=== PATIENT | male | born 1995 | race African-American/Black ===

== ENCOUNTER 2016-07-12 18:06 | Emergency (ER) | payer OTHER ==
[~2016-07-12] VITALS: Ht 177.8 cm; Wt 100.2 kg
[~2016-07-12 18:06] MED LIST: ACETAMINOPHEN325 M1 PO; ARIPIPRAZOLE10 MG PO; ARIPIPRAZOLE5 MG PO; DEPAKOTE250 MG PO; DEPAKOTE500 MG PO; MULTIVITAMIN1 EAC2 PO; POLYETHYLENE G255 GM PO
[2016-07-12 19:51] VITALS: BP 125/75
== END 2016-07-12 19:52 | disposition home or self-care (01) ==
LOC: EME 18:06
DX: F41.9 Anxiety disorder, unspecified (principal)
CPT/HCPCS: 99281; 99283

== ENCOUNTER 2016-08-11 18:22 | Emergency (ER) | payer OTHER ==
[~2016-08-11] VITALS: Ht 177.8 cm; Wt 98.8 kg
[2016-08-11] MEDS ORDERED: DEPAKOTE500 MG PO (18:30)
[2016-08-11] MEDS ORDERED: TOPAMAX50 MG PO (18:30)
[2016-08-11] MEDS ORDERED: INTUNIV1 MG PO (18:30)
[2016-08-11] MEDS ORDERED: LITHIUM CARBON600 MG PO (18:31)
[2016-08-11] MEDS ORDERED: LITHIUM CARBON450 MG PO (18:31)
[2016-08-11] MEDS ORDERED: RISPERDAL3 MG PO (18:31)
[2016-08-11 19:10] LABS: HEMATOCRIT 43.8 % (38.0-50.0); MCH 28.2 PG (29.0-34.0); MCV 88.1 FL (86-99); RBC DIS.WIDTH-CV 12.6 % (11.8-14.6); RBC DIS.WIDTH-SD 40.9 % (39-53); RED BLOOD COUNT 4.97 M/uL (4.00-5.50)
[2016-08-11 19:30] LABS: CHLORIDE 109 mEq/L (99-109); POTASSIUM 4.2 mEq/L (3.7-5.4); SODIUM 138 mEq/L (136-147)
[2016-08-11 19:32] LABS: GLUCOSE 90 mg/dL (70-99)
[2016-08-11 19:33] LABS: ANION GAP 8 MEQ/L (2-14)
[2016-08-11 19:34] LABS: ADD MIUA? NO; BILIRUBIN NEGATIVE; BLOOD NEGATIVE; COLOR YELLOW ((YELLOW)); GLUCOSE (STRIP) NEGATIVE; KETONES NEGATIVE; LEUKOCYTES NEGATIVE; NITRITE NEGATIVE; PROTEIN (STRIP) NEGATIVE; SPECIFIC GRAVITY 1.009 (1.000-1.030); UCUL ADDED? NO; UROBILINOGEN 0.2 MG/DL (0.2-1.0)
[2016-08-11 19:35] LABS: SERUM ETHYL ALCOHOL < 10 mg/dL
[2016-08-11 19:36] LABS: GFR ESTIMATE (CALCULATED) > 59 mL/min/
[2016-08-11 19:37] LABS: SAMPLE HEMOLYSIS CHECK 0; SAMPLE ICTERIC CHECK 0; SAMPLE LIPEMIA CHECK 0; UREA NITROGEN (BUN) 15 mg/dL (9-23)
[2016-08-11 19:42] LABS: AMPHETAMINE NEGATIVE (500 ng/mL); BARBITURATES NEGATIVE (200 ng/mL); BENZODIAZEPINES NEGATIVE (150 ng/mL); COCAINE NEGATIVE (150 ng/mL); INTERNAL CONTROLS VALID? YES; METHADONE NEGATIVE (200 ng/mL); METHAMPHETAMINE NEGATIVE (500 ng/mL); OPIATES (MORPHINE) NEGATIVE (100 ng/mL); OXYCODONE NEGATIVE (100 ng/mL); PHENCYCLIDINE NEGATIVE (25 ng/mL); PROPOXYPHENE NEGATIVE (300 ng/mL); THC CANNABINOIDS NEGATIVE (50 ng/mL); TRICYCLIC ANTIDEPRESSANTS NEGATIVE (300 ng/mL)
[2016-08-11 19:51] LABS: MEAN PLAT.VOLUME 10.9 uM^3 (9.0-12.4); PLATELET COUNT 162 K/uL (156-360)
[2016-08-11 20:27] VITALS: BP 114/71
== END 2016-08-11 20:38 | disposition home or self-care (01) ==
LOC: EME 18:22
PROVIDERS: Emergency Medicine
DX: R47.01 Aphasia (principal); F84.0 Autistic disorder; F31.9 Bipolar disorder, unspecified
CPT/HCPCS: 80048; 80164; 80178; 81003; 85027; 93005; 99281; 99285; G0480

== ENCOUNTER 2016-11-11 09:32 | Emergency (ER) | payer OTHER ==
[~2016-11-11] VITALS: Ht 182.9 cm; Wt 95.5 kg
[~2016-11-11 09:32] MED LIST changes: +INTUNIV1 MG PO; +LITHIUM CARBON450 MG PO; +LITHIUM CARBON600 MG PO; +RISPERDAL3 MG PO; +TOPAMAX50 MG PO
[2016-11-11 10:36] LABS: HEMATOCRIT 41.2 % (38.0-50.0); MCH 28.4 PG (29.0-34.0); MCHC 31.3 G/DL (30.0-36.0); MCV 90.5 FL (86-99); RBC DIS.WIDTH-SD 46.5 % (39-53); RED BLOOD COUNT 4.55 M/uL (4.00-5.50); WHITE BLOOD COUNT 5.5 K/uL (4.1-10.2)
[2016-11-11 10:44] LABS: CHLORIDE 115 mEq/L (99-109); POTASSIUM 4.4 mEq/L (3.7-5.4); SODIUM 143 mEq/L (136-147)
[2016-11-11 10:46] LABS: GLUCOSE 91 mg/dL (70-99)
[2016-11-11 10:47] LABS: ANION GAP 5 MEQ/L (2-14)
[2016-11-11 10:50] LABS: GFR ESTIMATE (CALCULATED) > 59 mL/min/
[2016-11-11 10:51] LABS: UREA NITROGEN (BUN) 8 mg/dL (9-23)
[2016-11-11 12:20] LABS: HEMATOLOGY COMMENT 1 SMEAR COMPATIBLE; MEAN PLAT.VOLUME 10.7 uM^3 (9.0-12.4); PLAT.SUFFICIENCY ADEQUATE; PLATELET COUNT 152 K/uL (156-360)
[2016-11-11 12:27] LABS: ADD MIUA? NO; BILIRUBIN NEGATIVE; BLOOD NEGATIVE; COLOR COLORLESS ((YELLOW)); GLUCOSE (STRIP) NEGATIVE; KETONES NEGATIVE; LEUKOCYTES NEGATIVE; NITRITE NEGATIVE; PROTEIN (STRIP) NEGATIVE; SPECIFIC GRAVITY 1.004 (1.000-1.030); UCUL ADDED? NO; UROBILINOGEN 0.2 MG/DL (0.2-1.0)
[2016-11-11 13:11] VITALS: BP 110/74
== END 2016-11-11 13:12 | disposition home or self-care (01) ==
LOC: EME 09:32
PROVIDERS: Emergency Medicine
DX: G40.909 Epilepsy, unspecified, not intractable, without status epilepticus (principal); F31.9 Bipolar disorder, unspecified; F41.9 Anxiety disorder, unspecified; F84.0 Autistic disorder
CPT/HCPCS: 70450; 80048; 81003; 85027; 99281; 99284

== ENCOUNTER 2016-12-15 15:13 | Emergency (ER) | payer OTHER ==
[~2016-12-15] VITALS: Ht 180.3 cm; Wt 98.0 kg
[2016-12-15 17:06] VITALS: BP 120/61
== END 2016-12-15 17:07 | disposition home or self-care (01) ==
LOC: EME 15:13
DX: F91.9 Conduct disorder, unspecified (principal); F63.81 Intermittent explosive disorder; F31.9 Bipolar disorder, unspecified; F79 Unspecified intellectual disabilities; G40.909 Epilepsy, unspecified, not intractable, without status epilepticus
CPT/HCPCS: 90839; 99281; 99285

== ENCOUNTER 2017-01-02 21:02 | Emergency (ER) | payer OTHER ==
[~2017-01-02] VITALS: Ht 182.9 cm; Wt 75.0 kg
[2017-01-02 23:23] VITALS: BP 129/86
== END 2017-01-02 23:25 | disposition home or self-care (01) ==
LOC: EME → EDBD 21:02 → EME 21:02
DX: F84.0 Autistic disorder (principal); F32.9 Major depressive disorder, single episode, unspecified; F41.9 Anxiety disorder, unspecified; G40.909 Epilepsy, unspecified, not intractable, without status epilepticus
CPT/HCPCS: 99281; 99284

== ENCOUNTER 2017-01-11 17:02 | Emergency (ER) | payer OTHER ==
[~2017-01-11] VITALS: Ht 167.6 cm; Wt 94.8 kg
[2017-01-11 19:10] VITALS: BP 132/90
== END 2017-01-11 19:11 | disposition home or self-care (01) ==
LOC: EME 17:02
DX: F91.9 Conduct disorder, unspecified (principal); F63.81 Intermittent explosive disorder; F79 Unspecified intellectual disabilities; F84.0 Autistic disorder; F31.9 Bipolar disorder, unspecified; R56.9 Unspecified convulsions
CPT/HCPCS: 90839; 99281; 99284

== ENCOUNTER 2017-01-26 19:07 | Emergency (ER) | payer OTHER ==
[~2017-01-26] VITALS: Ht 175.3 cm; Wt 91.6 kg
[2017-01-26 19:55] VITALS: BP 118/77
== END 2017-01-26 19:57 | disposition home or self-care (01) ==
LOC: EME 19:07
DX: F39 Unspecified mood [affective] disorder (principal); F84.0 Autistic disorder; F32.9 Major depressive disorder, single episode, unspecified; F41.9 Anxiety disorder, unspecified
CPT/HCPCS: 99281; 99284

== ENCOUNTER 2017-01-28 18:29 | Emergency (ER) | payer OTHER ==
[~2017-01-28] VITALS: Ht 177.8 cm; Wt 90.8 kg
[2017-01-28 22:13] VITALS: BP 126/83
== END 2017-01-28 22:14 | disposition home or self-care (01) ==
LOC: EME 18:29
DX: F63.81 Intermittent explosive disorder (principal); F84.0 Autistic disorder; F32.9 Major depressive disorder, single episode, unspecified; F41.9 Anxiety disorder, unspecified; R56.9 Unspecified convulsions
CPT/HCPCS: 90839; 99281; 99283

== ENCOUNTER 2017-02-09 19:57 | Inpatient (IN) | payer OTHER ==
[~2017-02-09] VITALS: Ht 177.8 cm; Wt 86.8 kg
[~2017-02-09 19:57] MED LIST changes: -RISPERDAL3 MG PO; +RISPERDAL4 MG PO; +TOPAMAX100 MG PO; -TOPAMAX50 MG PO
[2017-02-09] MEDS ORDERED: LORATADINE10 M2 PO (23:50)
[2017-02-09] MEDS ORDERED: GUANFACINE HCL1 MG PO (23:50)
[2017-02-09] MEDS ORDERED: POLYETHYLENE G255 GM PO (23:52)
[2017-02-09] MEDS ORDERED: TYLENOL REGULA325 MG PO (23:53)
[2017-02-09] MEDS ORDERED: DAILY MULTIPLE1 EACH PO (23:57)
[2017-02-10 01:13] VITALS: BP 115/56
[2017-02-10 07:58] VITALS: BP 97/58
[2017-02-10 16:00] VITALS: BP 87/52
[2017-02-10 18:30] VITALS: BP 109/64
[2017-02-10] MEDS ORDERED: DEPAKOTE250 MG PO (19:18)
[2017-02-10] MEDS ORDERED: TRILAFON8 MG PO (19:19)
[2017-02-11 07:50] VITALS: BP 119/80
[2017-02-11 15:47] VITALS: BP 112/68
[2017-02-12 08:00] VITALS: BP 91/53
== END 2017-02-12 14:55 | disposition home or self-care (01) | DRG 883 ==
LOC: EME 19:57 → 1WEST 22:35 → EDOF 22:35 → ENRESERV 02-10 01:04 → 1WEST 02-10 01:04
DX: F63.81 Intermittent explosive disorder (principal); F84.0 Autistic disorder; F70 Mild intellectual disabilities; Z79.899 Other long term (current) drug therapy
CPT/HCPCS: 80164; 80178; 90837; 99281; 99285; Q0175

== ENCOUNTER 2017-02-26 15:57 | Observation (INO) | payer OTHER ==
[~2017-02-26] VITALS: Ht 182.9 cm; Wt 86.5 kg
[~2017-02-26 15:57] MED LIST changes: +DAILY MULTIPLE1 EACH PO; +GUANFACINE HCL1 MG PO; +LITHIUM CARBON150 MG PO; -LITHIUM CARBON450 MG PO; +LORATADINE10 M2 PO; +TRILAFON8 MG PO; +TYLENOL REGULA325 MG PO
[2017-02-26 17:05] LABS: ADD MIUA? NO; BILIRUBIN NEGATIVE; BLOOD NEGATIVE; COLOR YELLOW ((YELLOW)); GLUCOSE (STRIP) NEGATIVE; KETONES 5; LEUKOCYTES NEGATIVE; NITRITE NEGATIVE; PROTEIN (STRIP) NEGATIVE; SPECIFIC GRAVITY 1.014 (1.000-1.030)
[2017-02-26 17:14] LABS: AMPHETAMINE NEGATIVE (500 ng/mL); BARBITURATES NEGATIVE (200 ng/mL); BENZODIAZEPINES NEGATIVE (150 ng/mL); COCAINE NEGATIVE (150 ng/mL); INTERNAL CONTROLS VALID? YES; METHADONE NEGATIVE (200 ng/mL); METHAMPHETAMINE NEGATIVE (500 ng/mL); OPIATES (MORPHINE) NEGATIVE (100 ng/mL); OXYCODONE NEGATIVE (100 ng/mL); PHENCYCLIDINE NEGATIVE (25 ng/mL); PROPOXYPHENE NEGATIVE (300 ng/mL); THC CANNABINOIDS NEGATIVE (50 ng/mL); TRICYCLIC ANTIDEPRESSANTS PRESUMPTIVE POSITIVE (300 ng/mL)
[2017-02-26 17:30] LABS: HEMATOCRIT 40.1 % (38.0-50.0); MCH 28.9 PG (29.0-34.0); MCHC 31.9 G/DL (30.0-36.0); MCV 90.5 FL (86-99); MEAN PLAT.VOLUME 11.2 uM^3 (9.0-12.4); PLATELET COUNT 126 K/uL (156-360); RBC DIS.WIDTH-CV 13.6 % (11.8-14.6); RBC DIS.WIDTH-SD 45.9 % (39-53); RED BLOOD COUNT 4.43 M/uL (4.00-5.50); WHITE BLOOD COUNT 7.4 K/uL (4.1-10.2)
[2017-02-26 17:40] LABS: CHLORIDE 109 mEq/L (99-109); POTASSIUM 4.4 mEq/L (3.7-5.4); SODIUM 141 mEq/L (136-147)
[2017-02-26 17:41] LABS: GLUCOSE 98 mg/dL (70-99)
[2017-02-26 17:43] LABS: ANION GAP 9 MEQ/L (2-14)
[2017-02-26 17:45] LABS: GFR ESTIMATE (CALCULATED) > 59 mL/min/; SERUM ETHYL ALCOHOL < 10 mg/dL
[2017-02-26 17:46] LABS: UREA NITROGEN (BUN) 9 mg/dL (9-23)
[2017-02-26] MEDS ORDERED: SUPER MULTIVIT1 EACH PO (19:45)
[2017-02-26] MEDS ORDERED: MIRALAX255 GM PO (19:46)
[2017-02-26] MEDS ORDERED: CLARITIN,ALAVAR10 MG PO (19:46)
[2017-02-26] MEDS ORDERED: TYLENOL REGULA325 MG PO (19:46)
[2017-02-26 21:10] VITALS: BP 106/48
[2017-02-27 02:48] VITALS: BP 98/60
[2017-02-27 06:02] LABS: MCH 30.2 PG (29.0-34.0); MCHC 33.4 G/DL (30.0-36.0); MCV 90.4 FL (86-99); RBC DIS.WIDTH-CV 13.8 % (11.8-14.6); RBC DIS.WIDTH-SD 45.4 % (39-53); RED BLOOD COUNT 3.87 M/uL (4.00-5.50); WHITE BLOOD COUNT 6.2 K/uL (4.1-10.2)
[2017-02-27 06:24] LABS: ANION GAP 5 MEQ/L (2-14); CHLORIDE 113 MEQ/L (99-109); GFR ESTIMATE (CALCULATED) > 59 mL/min/; GLUCOSE 82 mg/dL (70-99); POTASSIUM 4.5 MEQ/L (3.7-5.4); SAMPLE HEMOLYSIS CHECK 0; SAMPLE ICTERIC CHECK 0; SAMPLE LIPEMIA CHECK 0; SODIUM 141 MEQ/L (136-147); UREA NITROGEN (BUN) 9 mg/dL (9-23)
[2017-02-27 06:53] LABS: MEAN PLAT.VOLUME 11.4 uM^3 (9.0-12.4); PLAT.SUFFICIENCY DECREASED; PLATELET COUNT 124 K/uL (156-360)
[2017-02-27 09:54] VITALS: BP 104/50
[2017-02-27 12:08] VITALS: BP 95/49
[2017-02-27] MEDS ORDERED: TOPAMAX100 MG PO (13:10)
[2017-02-27] MEDS ORDERED: DEPAKOTE500 MG PO (13:10)
[2017-02-27] MEDS ORDERED: RISPERDAL2 MG PO (13:10)
== END 2017-02-27 15:10 | disposition home or self-care (01) ==
LOC: EME 15:57 → 5WEST 19:49 → EDOF 19:49 → ENRESERV 19:50 → 5WEST 21:01
PROVIDERS: Emergency Medicine; Hospitalist
DX: R53.83 Other fatigue (principal); R41.82 Altered mental status, unspecified; R47.81 Slurred speech; T42.6X5A Adverse effect of other antiepileptic and sedative-hypnotic drugs, initial encounter; F70 Mild intellectual disabilities; F84.0 Autistic disorder; F63.81 Intermittent explosive disorder; F41.9 Anxiety disorder, unspecified; F39 Unspecified mood [affective] disorder; Z79.899 Other long term (current) drug therapy; Z88.8 Allergy status to other drugs, medicaments and biological substances
CPT/HCPCS: 70450; 80048; 80164; 80178; 81003; 85027; 87086; 99281; 99285; G0378; G0480; J7030; Q0175

== ENCOUNTER 2017-02-28 10:45 | Emergency (ER) | payer OTHER ==
[~2017-02-28] VITALS: Ht 175.3 cm; Wt 81.4 kg
[~2017-02-28 10:45] MED LIST changes: +CLARITIN,ALAVAR10 MG PO; +MIRALAX255 GM PO; +RISPERDAL2 MG PO; +SUPER MULTIVIT1 EACH PO
[2017-02-28 11:48] VITALS: BP 111/70
== END 2017-02-28 11:58 | disposition home or self-care (01) ==
LOC: EME 10:45
DX: R51 Headache (principal); F84.0 Autistic disorder; F31.9 Bipolar disorder, unspecified; F41.9 Anxiety disorder, unspecified; F32.9 Major depressive disorder, single episode, unspecified; R56.9 Unspecified convulsions; Z88.8 Allergy status to other drugs, medicaments and biological substances
CPT/HCPCS: 99281; 99283

== ENCOUNTER 2017-03-02 15:33 | Emergency (ER) | payer OTHER ==
[~2017-03-02] VITALS: Ht 175.3 cm; Wt 87.8 kg
[2017-03-02 17:15] LABS: ADD MIUA? NO; BILIRUBIN NEGATIVE; BLOOD NEGATIVE; COLOR YELLOW ((YELLOW)); GLUCOSE (STRIP) NEGATIVE; KETONES NEGATIVE; LEUKOCYTES NEGATIVE; NITRITE NEGATIVE; PROTEIN (STRIP) NEGATIVE; SPECIFIC GRAVITY 1.009 (1.000-1.030)
[2017-03-02] MEDS ORDERED: BENADRYL50 MG PO (17:29)
[2017-03-02 18:00] VITALS: BP 124/71
== END 2017-03-02 18:03 | disposition home or self-care (01) ==
LOC: EME 15:33
PROVIDERS: Physician Assistant
DX: G47.00 Insomnia, unspecified (principal); R32 Unspecified urinary incontinence; F84.0 Autistic disorder
CPT/HCPCS: 81003; 99281; 99283

== ENCOUNTER → 2017-03-03 15:34 | Emergency (ER) | payer OTHER ==
[~2017-03-03] VITALS: Ht 175.3 cm; Wt 89.2 kg
[~2017-03-03 15:34] MED LIST changes: +BENADRYL50 MG PO
[2017-03-03 16:33] VITALS: BP 109/73
== END | disposition left against medical advice (07) ==
LOC: EME 15:34
DX: F84.0 Autistic disorder (principal); Z53.21 Procedure and treatment not carried out due to patient leaving prior to being seen by health care provider

== ENCOUNTER 2017-03-04 15:32 | Emergency (ER) | payer OTHER ==
[~2017-03-04] VITALS: Ht 175.3 cm; Wt 88.1 kg
[2017-03-04 21:04] LABS: EOSINOPHIL (%) 4.3 % (0-5); EOSINOPHIL COUNT 0.3 K/uL (0-0.3); HEMATOCRIT 37.3 % (38.0-50.0); IMMATURE GRANULOCYTE (%) 0.1 % (0.0-0.7); INSTRUMENT ABS NEUTROPHIL CT 2.9 K/uL; MCH 29.2 PG (29.0-34.0); MCHC 32.4 G/DL (30.0-36.0); MCV 89.9 FL (86-99); MEAN PLAT.VOLUME 10.6 uM^3 (9.0-12.4); MONOCYTE COUNT 0.8 K/uL (0-0.8); NEUTROPHIL (%) 41.2 % (45-76); NEUTROPHIL COUNT 2.9 K/uL (1.8-6.4); PLATELET COUNT 153 K/uL (156-360); RBC DIS.WIDTH-CV 13.6 % (11.8-14.6); RBC DIS.WIDTH-SD 45.1 % (39-53); RED BLOOD COUNT 4.15 M/uL (4.00-5.50)
[2017-03-04 21:17] LABS: CHLORIDE 115 mEq/L (99-109); POTASSIUM 4.5 mEq/L (3.7-5.4); SODIUM 139 mEq/L (136-147)
[2017-03-04 21:19] LABS: GLUCOSE 102 mg/dL (70-99)
[2017-03-04 21:22] LABS: SERUM ETHYL ALCOHOL < 10 mg/dL
[2017-03-04 21:23] LABS: GFR ESTIMATE (CALCULATED) > 59 mL/min/
[2017-03-04 21:24] LABS: UREA NITROGEN (BUN) 6 mg/dL (9-23)
[2017-03-04 21:52] LABS: AMPHETAMINE NEGATIVE (500 ng/mL); BARBITURATES NEGATIVE (200 ng/mL); BENZODIAZEPINES NEGATIVE (150 ng/mL); COCAINE NEGATIVE (150 ng/mL); INTERNAL CONTROLS VALID? YES; METHADONE NEGATIVE (200 ng/mL); METHAMPHETAMINE NEGATIVE (500 ng/mL); OPIATES (MORPHINE) NEGATIVE (100 ng/mL); OXYCODONE NEGATIVE (100 ng/mL); PHENCYCLIDINE NEGATIVE (25 ng/mL); PROPOXYPHENE NEGATIVE (300 ng/mL); THC CANNABINOIDS NEGATIVE (50 ng/mL); TRICYCLIC ANTIDEPRESSANTS NEGATIVE (300 ng/mL)
[2017-03-05 05:12] VITALS: BP 105/72
== END 2017-03-05 05:13 ==
LOC: EME 15:32
PROVIDERS: Emergency Medicine
DX: F43.20 Adjustment disorder, unspecified (principal); F63.81 Intermittent explosive disorder; F79 Unspecified intellectual disabilities; F84.0 Autistic disorder; R45.6 Violent behavior
CPT/HCPCS: 80048; 85025; 90837; 99281; 99285; G0480

== ENCOUNTER 2017-03-11 16:02 | Emergency (ER) | payer OTHER ==
[~2017-03-11] VITALS: Ht 175.3 cm; Wt 86.3 kg
[2017-03-12 08:56] VITALS: BP 92/41
== END 2017-03-12 08:58 | disposition home or self-care (01) ==
LOC: EME 16:02
DX: F32.9 Major depressive disorder, single episode, unspecified (principal); F63.81 Intermittent explosive disorder; F79 Unspecified intellectual disabilities; F84.0 Autistic disorder; R21 Rash and other nonspecific skin eruption; Z59.0 Homelessness
CPT/HCPCS: 90837; 99281; 99284

== ENCOUNTER 2017-03-12 14:40 | Emergency (ER) | payer OTHER ==
[~2017-03-12] VITALS: Ht 175.3 cm; Wt 87.9 kg
[2017-03-12 16:04] VITALS: BP 136/87
== END 2017-03-12 16:15 | disposition home or self-care (01) ==
LOC: EME 14:40
DX: F31.9 Bipolar disorder, unspecified (principal); Z59.0 Homelessness; F84.0 Autistic disorder; F41.9 Anxiety disorder, unspecified
CPT/HCPCS: 99281; 99284

== ENCOUNTER 2017-03-14 10:15 | Emergency (ER) | payer OTHER ==
[~2017-03-14] VITALS: Ht 175.3 cm; Wt 85.5 kg
[2017-03-14 10:40] LABS: EOSINOPHIL (%) 0.6 % (0-5); EOSINOPHIL COUNT 0.1 K/uL (0-0.3); HEMATOCRIT 36.6 % (38.0-50.0); IMMATURE GRANULOCYTE (%) 0.2 % (0.0-0.7); LYMPHOCYTE COUNT 2.4 K/uL (1.0-2.8); MCH 28.8 PG (29.0-34.0); MCHC 32.2 G/DL (30.0-36.0); MCV 89.3 FL (86-99); MEAN PLAT.VOLUME 10.5 uM^3 (9.0-12.4); MONOCYTE COUNT 0.9 K/uL (0-0.8); NEUTROPHIL (%) 59.6 % (45-76); PLATELET COUNT 193 K/uL (156-360); RBC DIS.WIDTH-CV 14.1 % (11.8-14.6); RBC DIS.WIDTH-SD 46.1 % (39-53); WHITE BLOOD COUNT 8.4 K/uL (4.1-10.2)
[2017-03-14 10:51] LABS: CHLORIDE 112 mEq/L (99-109); POTASSIUM 3.5 mEq/L (3.7-5.4); SODIUM 140 mEq/L (136-147)
[2017-03-14 10:53] LABS: GLUCOSE 107 mg/dL (70-99)
[2017-03-14 10:54] LABS: ANION GAP 9 MEQ/L (2-14)
[2017-03-14 10:57] LABS: GFR ESTIMATE (CALCULATED) > 59 mL/min/
[2017-03-14 10:58] LABS: UREA NITROGEN (BUN) 8 mg/dL (9-23)
[2017-03-14 10:58] LABS: ADD MIUA? YES; BILIRUBIN NEGATIVE; BLOOD NEGATIVE; COLOR YELLOW ((YELLOW)); GLUCOSE (STRIP) NEGATIVE; KETONES NEGATIVE; LEUKOCYTES NEGATIVE; NITRITE NEGATIVE; PROTEIN (STRIP) 100; SPECIFIC GRAVITY 1.016 (1.000-1.030)
[2017-03-14 11:09] LABS: BACTERIA RARE /HPF; CALCIUM OXALATE CRYSTALS 1+ /HPF; EPITHELIAL CELLS RARE /HPF; GRANULAR CASTS 0-5 /LPF; HYALINE CASTS 0-5 /LPF; MUCUS TRACE /LPF; RED BLOOD CELLS 0-5 /HPF (0-5); UCUL ADDED? NO; WHITE BLOOD CELLS 0-5 /HPF (0-5)
[2017-03-14 11:56] VITALS: BP 134/94
[2017-03-19] MEDS ORDERED: ELIMITE 5% CREA60 GM TP (22:39)
== END 2017-03-14 12:11 | disposition home or self-care (01) ==
LOC: EME 10:15
PROVIDERS: Emergency Medicine
DX: R30.0 Dysuria (principal); F84.0 Autistic disorder; F31.9 Bipolar disorder, unspecified; F41.9 Anxiety disorder, unspecified; F32.9 Major depressive disorder, single episode, unspecified; R56.9 Unspecified convulsions; Z59.0 Homelessness
CPT/HCPCS: 80048; 81003; 85025; 99281; 99284

== ENCOUNTER 2017-03-14 17:51 | Emergency (ER) | payer OTHER ==
[~2017-03-14] VITALS: Ht 175.3 cm; Wt 75.0 kg
[2017-03-14 17:54] VITALS: BP 145/92
[2017-03-19] MEDS ORDERED: ELIMITE 5% CREA60 GM TP (22:39)
== END 2017-03-14 18:32 | disposition left against medical advice (07) ==
LOC: EME 17:51
DX: R51 Headache (principal); F41.9 Anxiety disorder, unspecified; F32.9 Major depressive disorder, single episode, unspecified; F84.0 Autistic disorder; Z59.0 Homelessness
CPT/HCPCS: 99281; 99284

== ENCOUNTER 2017-03-16 14:11 | Emergency (ER) | payer OTHER ==
[~2017-03-16] VITALS: Ht 175.3 cm; Wt 84.7 kg
[2017-03-16 15:09] LABS: CHLORIDE 108 mEq/L (99-109); POTASSIUM 3.5 mEq/L (3.7-5.4); SODIUM 140 mEq/L (136-147)
[2017-03-16 15:11] LABS: GLUCOSE 88 mg/dL (70-99)
[2017-03-16 15:13] LABS: ANION GAP 11 MEQ/L (2-14)
[2017-03-16 15:15] LABS: GFR ESTIMATE (CALCULATED) > 59 mL/min/
[2017-03-16 15:16] LABS: UREA NITROGEN (BUN) 9 mg/dL (9-23)
[2017-03-16 16:20] VITALS: BP 133/69
[2017-03-19] MEDS ORDERED: ELIMITE 5% CREA60 GM TP (22:39)
== END 2017-03-16 16:20 | disposition home or self-care (01) ==
LOC: EME 14:11
PROVIDERS: Emergency Medicine
DX: F41.9 Anxiety disorder, unspecified (principal); R39.89 Other symptoms and signs involving the genitourinary system; F84.0 Autistic disorder
CPT/HCPCS: 80048; 99281; 99283

== ENCOUNTER 2017-03-17 23:27 | Emergency (ER) | payer OTHER ==
[~2017-03-17] VITALS: Ht 175.3 cm; Wt 89.8 kg
[2017-03-17 23:35] VITALS: BP 131/88
[2017-03-18] MEDS ORDERED: ELIMITE 5% CREA60 GM TP (00:57)
[2017-03-19] MEDS ORDERED: ELIMITE 5% CREA60 GM TP (22:39)
== END 2017-03-18 02:28 | disposition home or self-care (01) ==
LOC: EXP 23:27 → EME 23:27 → EXP 03-18 02:28
DX: B86 Scabies (principal); L30.9 Dermatitis, unspecified; F84.0 Autistic disorder
CPT/HCPCS: 99281; 99284

== ENCOUNTER 2017-04-23 11:30 | Emergency (ER) | payer OTHER ==
[~2017-04-23] VITALS: Ht 177.8 cm; Wt 89.5 kg
[~2017-04-23 11:30] MED LIST changes: +ELIMITE 5% CREA60 GM TP
[2017-04-23 13:55] LABS: EOSINOPHIL (%) 3.4 % (0-5); EOSINOPHIL COUNT 0.3 K/uL (0-0.3); HEMATOCRIT 41.7 % (38.0-50.0); IMMATURE GRANULOCYTE (%) 0.4 % (0.0-0.7); INSTRUMENT ABS NEUTROPHIL CT 4.1 K/uL; LYMPHOCYTE COUNT 2.5 K/uL (1.0-2.8); MCH 28.6 PG (29.0-34.0); MCHC 31.7 G/DL (30.0-36.0); MCV 90.3 FL (86-99); MEAN PLAT.VOLUME 11.4 uM^3 (9.0-12.4); MONOCYTE (%) 7.1 % (3-12); MONOCYTE COUNT 0.5 K/uL (0-0.8); NEUTROPHIL (%) 55.3 % (45-76); NEUTROPHIL COUNT 4.1 K/uL (1.8-6.4); PLATELET COUNT 142 K/uL (156-360); RED BLOOD COUNT 4.62 M/uL (4.00-5.50); WHITE BLOOD COUNT 7.4 K/uL (4.1-10.2)
[2017-04-23 14:48] LABS: TROP-I INTERPRETATION NEGATIVE; TROPONIN-I < 0.01 ng/mL (0.0-0.30)
[2017-04-23 16:02] LABS: ANION GAP 5 MEQ/L (2-14); CHLORIDE 110 MEQ/L (99-109); GFR ESTIMATE (CALCULATED) > 59 mL/min/; GLUCOSE 89 mg/dL (70-99); POTASSIUM 4.2 MEQ/L (3.7-5.4); SAMPLE HEMOLYSIS CHECK 0; SAMPLE ICTERIC CHECK 0; SAMPLE LIPEMIA CHECK 0; SERUM ETHYL ALCOHOL < 10 mg/dL; SODIUM 140 MEQ/L (136-147); UREA NITROGEN (BUN) 8 mg/dL (9-23)
[2017-04-23 18:04] VITALS: BP 119/68
== END 2017-04-23 18:13 | disposition home or self-care (01) ==
LOC: EME 11:30
PROVIDERS: Emergency Medicine
DX: F43.9 Reaction to severe stress, unspecified (principal); R51 Headache; R94.31 Abnormal electrocardiogram [ECG] [EKG]; F32.9 Major depressive disorder, single episode, unspecified; F41.9 Anxiety disorder, unspecified; F84.0 Autistic disorder; R56.9 Unspecified convulsions; Z88.8 Allergy status to other drugs, medicaments and biological substances
CPT/HCPCS: 71010; 80048; 80164; 80178; 81003; 84484; 85025; 90839; 93005; 99281; 99285; G0480

== ENCOUNTER 2017-05-21 08:49 | Emergency (ER) | payer OTHER ==
[~2017-05-21] VITALS: Ht 175.3 cm; Wt 90.0 kg
[2017-05-21] MEDS ORDERED: ENEMA READY TO133 ML PR (10:20)
[2017-05-21 10:32] VITALS: BP 121/86
== END 2017-05-21 10:32 | disposition home or self-care (01) ==
LOC: EME 08:49
DX: K59.09 Other constipation (principal)
CPT/HCPCS: 99281; 99284

== ENCOUNTER 2017-05-23 15:21 | Emergency (ER) | payer OTHER ==
[~2017-05-23] VITALS: Ht 175.3 cm; Wt 89.4 kg
[~2017-05-23 15:21] MED LIST changes: +ENEMA READY TO133 ML PR
[2017-05-23 21:30] VITALS: BP 117/74
== END 2017-05-23 21:31 | disposition home or self-care (01) ==
LOC: EME 15:21
DX: R45.4 Irritability and anger (principal); F84.0 Autistic disorder; F63.81 Intermittent explosive disorder; F79 Unspecified intellectual disabilities
CPT/HCPCS: 80048; 81003; 85027; 90839; 99281; 99284

== ENCOUNTER 2017-07-13 15:30 | Emergency (ER) | payer OTHER ==
[~2017-07-13] VITALS: Ht 175.3 cm; Wt 89.3 kg
[2017-07-13 16:29] LABS: APPEARANCE CLEAR ((CLEAR)); BILIRUBIN NEGATIVE; BLOOD NEGATIVE; COLOR YELLOW ((YELLOW)); GLUCOSE (STRIP) NEGATIVE; KETONES NEGATIVE; LEUKOCYTES NEGATIVE; NITRITE NEGATIVE; PROTEIN (STRIP) NEGATIVE; UCUL ADDED? NO
[2017-07-13 17:21] LABS: SOURCE URINE
[2017-07-13] MEDS ORDERED: PYRIDIUM200 MG PO (17:30)
[2017-07-13 18:22] VITALS: BP 114/72
[2017-07-15 14:54] LABS: CHLAMYDIA TRACHOMATIS NEGATIVE; NEISSERIA GONORRHOEAE NEGATIVE
== END 2017-07-13 18:23 | disposition home or self-care (01) ==
LOC: EME 15:30
DX: R30.0 Dysuria (principal); F31.9 Bipolar disorder, unspecified; F32.9 Major depressive disorder, single episode, unspecified; R56.9 Unspecified convulsions; F41.9 Anxiety disorder, unspecified; F84.0 Autistic disorder; Z88.8 Allergy status to other drugs, medicaments and biological substances
CPT/HCPCS: 81003; 87086; 87491; 87591; 99281; 99284

== ENCOUNTER 2017-08-09 19:26 | Emergency (ER) | payer OTHER ==
[~2017-08-09] VITALS: Ht 175.3 cm; Wt 92.1 kg
[~2017-08-09 19:26] MED LIST changes: +PYRIDIUM200 MG PO
[2017-08-09 21:58] VITALS: BP 119/81
== END 2017-08-09 21:59 | disposition home or self-care (01) ==
LOC: EME 19:26
DX: F91.9 Conduct disorder, unspecified (principal); F63.81 Intermittent explosive disorder; F79 Unspecified intellectual disabilities; F84.0 Autistic disorder; F31.9 Bipolar disorder, unspecified; F32.9 Major depressive disorder, single episode, unspecified; F41.9 Anxiety disorder, unspecified; Z88.8 Allergy status to other drugs, medicaments and biological substances
CPT/HCPCS: 90839; 99281; 99284

== ENCOUNTER 2017-08-10 18:58 | Emergency (ER) | payer OTHER ==
[~2017-08-10] VITALS: Ht 175.3 cm; Wt 91.1 kg
[2017-08-10 19:28] VITALS: BP 120/80
== END 2017-08-10 23:17 | disposition home or self-care (01) ==
LOC: EME 18:58
DX: F31.30 Bipolar disorder, current episode depressed, mild or moderate severity, unspecified (principal); F39 Unspecified mood [affective] disorder; F84.0 Autistic disorder; F41.9 Anxiety disorder, unspecified; Z88.8 Allergy status to other drugs, medicaments and biological substances

== ENCOUNTER 2017-08-14 20:29 | Emergency (ER) | payer OTHER ==
[~2017-08-14] VITALS: Ht 175.3 cm; Wt 88.2 kg
[2017-08-14 20:31] VITALS: BP 151/93
== END 2017-08-14 22:24 | disposition left against medical advice (07) ==
LOC: EME 20:29
DX: J02.9 Acute pharyngitis, unspecified (principal); F32.9 Major depressive disorder, single episode, unspecified; Z53.21 Procedure and treatment not carried out due to patient leaving prior to being seen by health care provider

== ENCOUNTER 2017-09-17 12:20 | Emergency (ER) | payer OTHER ==
[~2017-09-17] VITALS: Ht 175.3 cm; Wt 81.0 kg
[2017-09-17 13:49] LABS: HEMATOCRIT 39.2 % (38.0-50.0); HEMOGLOBIN 12.8 G/DL (12.5-16.6); MCH 29.6 PG (29.0-34.0); MCHC 32.7 G/DL (30.0-36.0); MCV 90.7 FL (86-99); PLATELET COUNT 156 K/uL (156-360); RBC DIS.WIDTH-CV 12.7 % (11.8-14.6); RED BLOOD COUNT 4.32 M/uL (4.00-5.50); WHITE BLOOD COUNT 6.6 K/uL (4.1-10.2)
[2017-09-17 14:10] LABS: CHLORIDE 107 MEQ/L (99-109); POTASSIUM 4.2 MEQ/L (3.7-5.4); SODIUM 140 MEQ/L (136-147)
[2017-09-17 14:15] LABS: CREATININE 1.3 MG/DL (0.6-1.3); GFR ESTIMATE (CALCULATED) > 59 mL/min/ (58.99-99999); GLUCOSE 99 mg/dL (70-99); UREA NITROGEN (BUN) 9 mg/dL (9-23)
[2017-09-17 14:30] VITALS: BP 134/74
== END 2017-09-17 14:20 | disposition home or self-care (01) ==
LOC: EME 12:20
PROVIDERS: Emergency Medicine
DX: F84.0 Autistic disorder (principal); F63.81 Intermittent explosive disorder; F79 Unspecified intellectual disabilities; R45.4 Irritability and anger
CPT/HCPCS: 80048; 81003; 85027; 90839; 99281; 99285

== ENCOUNTER 2017-10-14 16:27 | Emergency (ER) | payer OTHER ==
[~2017-10-14] VITALS: Ht 175.3 cm; Wt 92.3 kg
[2017-10-14 17:54] LABS: BASOPHIL (%) 0.4 % (0-1); EOSINOPHIL (%) 2.7 % (0-5); EOSINOPHIL COUNT 0.2 K/uL (0-0.3); HEMATOCRIT 39.4 % (38.0-50.0); HEMOGLOBIN 13.1 G/DL (12.5-16.6); IMMATURE GRANULOCYTE (%) 0.4 % (0.0-0.7); LYMPHOCYTE (%) 29.4 % (15-42); LYMPHOCYTE COUNT 2.5 K/uL (1.0-2.8); MCH 29.8 PG (29.0-34.0); MCHC 33.2 G/DL (30.0-36.0); MCV 89.5 FL (86-99); MONOCYTE (%) 9.4 % (3-12); MONOCYTE COUNT 0.8 K/uL (0-0.8); NEUTROPHIL (%) 57.7 % (45-76); NEUTROPHIL COUNT 4.9 K/uL (1.8-6.4); PLATELET COUNT 158 K/uL (156-360); RBC DIS.WIDTH-CV 12.6 % (11.8-14.6); RBC DIS.WIDTH-SD 41.4 % (39-53); WHITE BLOOD COUNT 8.5 K/uL (4.1-10.2)
[2017-10-14 18:04] LABS: CHLORIDE 108 mEq/L (99-109); POTASSIUM 4.2 mEq/L (3.7-5.4); SODIUM 141 mEq/L (136-147)
[2017-10-14 18:05] LABS: GLUCOSE 92 mg/dL (70-99)
[2017-10-14 18:07] LABS: AMPHETAMINE NEGATIVE (500 ng/mL); BARBITURATES NEGATIVE (200 ng/mL); BENZODIAZEPINES NEGATIVE (150 ng/mL); BUPRENORPHINE NEGATIVE (10 ng/mL); COCAINE NEGATIVE (150 ng/mL); METHADONE NEGATIVE (200 ng/mL); METHAMPHETAMINE NEGATIVE (500 ng/mL); OPIATES (MORPHINE) NEGATIVE (100 ng/mL); OXYCODONE NEGATIVE (100 ng/mL); PHENCYCLIDINE NEGATIVE (25 ng/mL); PROPOXYPHENE NEGATIVE (300 ng/mL); THC CANNABINOIDS NEGATIVE (50 ng/mL); TRICYCLIC ANTIDEPRESSANTS NEGATIVE (300 ng/mL)
[2017-10-14 18:09] LABS: CREATININE 1.4 mg/dL (0.6-1.3); GFR ESTIMATE (CALCULATED) > 59 mL/min/ (58.99-99999); SERUM ETHYL ALCOHOL < 10 mg/dL
[2017-10-14 18:10] LABS: UREA NITROGEN (BUN) 10 mg/dL (9-23)
[2017-10-14 19:05] LABS: VALPROIC ACID (DEPAKOTE) 99.9 MCG/ML (50-100)
[2017-10-14 20:07] VITALS: BP 111/72
== END 2017-10-14 20:12 | disposition home or self-care (01) ==
LOC: EME 16:27
PROVIDERS: Emergency Medicine
DX: F43.22 Adjustment disorder with anxiety (principal); F84.0 Autistic disorder; F63.81 Intermittent explosive disorder; F79 Unspecified intellectual disabilities; F31.9 Bipolar disorder, unspecified; F41.9 Anxiety disorder, unspecified
CPT/HCPCS: 80048; 80164; 80178; 85025; 90839; 99281; 99285; G0480

== ENCOUNTER 2017-12-03 16:04 | Emergency (ER) | payer OTHER ==
[~2017-12-03] VITALS: Ht 175.3 cm; Wt 94.5 kg
[2017-12-03] MEDS ORDERED: IVERMECTIN3 MG PO (17:46)
[2017-12-03] MEDS ORDERED: ATARAX,VISTARIL25 MG PO (17:59)
[2017-12-03 18:25] VITALS: BP 114/70
== END 2017-12-03 18:26 | disposition home or self-care (01) ==
LOC: EXP 16:04 → EME 16:04 → EXP 18:26
DX: B86 Scabies (principal); F31.9 Bipolar disorder, unspecified; F41.9 Anxiety disorder, unspecified; F84.0 Autistic disorder; F32.9 Major depressive disorder, single episode, unspecified; Z87.2 Personal history of diseases of the skin and subcutaneous tissue; Z88.8 Allergy status to other drugs, medicaments and biological substances
CPT/HCPCS: 99281; 99283

== ENCOUNTER 2017-12-24 10:56 | Emergency (ER) | payer OTHER ==
[~2017-12-24] VITALS: Ht 175.3 cm; Wt 95.5 kg
[~2017-12-24 10:56] MED LIST changes: +ATARAX,VISTARIL25 MG PO; +IVERMECTIN3 MG PO
[2017-12-24 11:40] LABS: APPEARANCE CLEAR ((CLEAR)); BILIRUBIN NEGATIVE; BLOOD NEGATIVE; COLOR STRAW ((YELLOW)); GLUCOSE (STRIP) NEGATIVE; KETONES NEGATIVE; LEUKOCYTES NEGATIVE; NITRITE NEGATIVE; PROTEIN (STRIP) NEGATIVE; SPECIFIC GRAVITY 1.004 (1.000-1.030); UROBILINOGEN 0.2 MG/DL (0.2-1.0)
[2017-12-24 11:50] LABS: AMPHETAMINE NEGATIVE (500 ng/mL); BARBITURATES NEGATIVE (200 ng/mL); BENZODIAZEPINES NEGATIVE (150 ng/mL); BUPRENORPHINE NEGATIVE (10 ng/mL); COCAINE NEGATIVE (150 ng/mL); METHADONE NEGATIVE (200 ng/mL); METHAMPHETAMINE NEGATIVE (500 ng/mL); OPIATES (MORPHINE) NEGATIVE (100 ng/mL); OXYCODONE NEGATIVE (100 ng/mL); PHENCYCLIDINE NEGATIVE (25 ng/mL); PROPOXYPHENE NEGATIVE (300 ng/mL); THC CANNABINOIDS NEGATIVE (50 ng/mL); TRICYCLIC ANTIDEPRESSANTS NEGATIVE (300 ng/mL)
[2017-12-24 12:00] LABS: BASOPHIL (%) 0.4 % (0-1); EOSINOPHIL (%) 2.6 % (0-5); EOSINOPHIL COUNT 0.2 K/uL (0-0.3); HEMATOCRIT 42.7 % (38.0-50.0); HEMOGLOBIN 13.6 G/DL (12.5-16.6); IMMATURE GRANULOCYTE (%) 0.4 % (0.0-0.7); LYMPHOCYTE (%) 37.3 % (15-42); LYMPHOCYTE COUNT 2.8 K/uL (1.0-2.8); MCH 28.9 PG (29.0-34.0); MCHC 31.9 G/DL (30.0-36.0); MCV 90.9 FL (86-99); MONOCYTE (%) 7.8 % (3-12); MONOCYTE COUNT 0.6 K/uL (0-0.8); NEUTROPHIL (%) 51.5 % (45-76); NEUTROPHIL COUNT 3.8 K/uL (1.8-6.4); PLATELET COUNT 142 K/uL (156-360); RBC DIS.WIDTH-CV 12.5 % (11.8-14.6); RBC DIS.WIDTH-SD 41.5 % (39-53); WHITE BLOOD COUNT 7.5 K/uL (4.1-10.2)
[2017-12-24 12:12] LABS: CHLORIDE 112 mEq/L (99-109); POTASSIUM 4.4 mEq/L (3.7-5.4); SODIUM 143 mEq/L (136-147)
[2017-12-24 12:14] LABS: GLUCOSE 94 mg/dL (70-99)
[2017-12-24 12:17] LABS: SERUM ETHYL ALCOHOL < 10 mg/dL
[2017-12-24 12:18] LABS: CREATININE 1.5 mg/dL (0.6-1.3); GFR ESTIMATE (CALCULATED) > 59 mL/min/ (58.99-99999)
[2017-12-24 12:19] LABS: UREA NITROGEN (BUN) 9 mg/dL (9-23)
[2017-12-24 13:05] VITALS: BP 136/71
== END 2017-12-24 13:07 | disposition home or self-care (01) ==
LOC: EME 10:56
PROVIDERS: Emergency Medicine
DX: F41.9 Anxiety disorder, unspecified (principal); F32.9 Major depressive disorder, single episode, unspecified; F84.0 Autistic disorder; F63.81 Intermittent explosive disorder; F79 Unspecified intellectual disabilities; Z86.69 Personal history of other diseases of the nervous system and sense organs
CPT/HCPCS: 80048; 81003; 85025; 90839; 99281; 99284; G0480

== ENCOUNTER 2017-12-29 16:48 | Emergency (ER) | payer OTHER ==
[~2017-12-29] VITALS: Ht 175.3 cm; Wt 96.1 kg
[2017-12-29 17:20] LABS: APPEARANCE CLEAR ((CLEAR)); BILIRUBIN NEGATIVE; BLOOD NEGATIVE; COLOR YELLOW ((YELLOW)); GLUCOSE (STRIP) NEGATIVE; KETONES NEGATIVE; LEUKOCYTES NEGATIVE; NITRITE NEGATIVE; PROTEIN (STRIP) NEGATIVE; SPECIFIC GRAVITY 1.015 (1.000-1.030); UCUL ADDED? NO
[2017-12-29 17:24] LABS: HEMATOCRIT 37.7 % (38.0-50.0); HEMOGLOBIN 12.6 G/DL (12.5-16.6); MCH 29.4 PG (29.0-34.0); MCHC 33.4 G/DL (30.0-36.0); MCV 88.1 FL (86-99); RBC DIS.WIDTH-CV 12.9 % (11.8-14.6); RBC DIS.WIDTH-SD 41.4 % (39-53); RED BLOOD COUNT 4.28 M/uL (4.00-5.50); WHITE BLOOD COUNT 8.4 K/uL (4.1-10.2)
[2017-12-29 17:28] LABS: AMPHETAMINE NEGATIVE (500 ng/mL); BARBITURATES NEGATIVE (200 ng/mL); BENZODIAZEPINES NEGATIVE (150 ng/mL); BUPRENORPHINE NEGATIVE (10 ng/mL); COCAINE NEGATIVE (150 ng/mL); METHADONE NEGATIVE (200 ng/mL); METHAMPHETAMINE NEGATIVE (500 ng/mL); OPIATES (MORPHINE) NEGATIVE (100 ng/mL); OXYCODONE NEGATIVE (100 ng/mL); PHENCYCLIDINE NEGATIVE (25 ng/mL); PROPOXYPHENE NEGATIVE (300 ng/mL); THC CANNABINOIDS NEGATIVE (50 ng/mL); TRICYCLIC ANTIDEPRESSANTS NEGATIVE (300 ng/mL)
[2017-12-29 17:31] LABS: ALBUMIN 4.3 g/dL (3.2-4.8); CHLORIDE 112 mEq/L (99-109); SODIUM 141 mEq/L (136-147)
[2017-12-29 17:34] LABS: GLUCOSE 122 mg/dL (70-99); TOTAL PROTEIN 6.8 g/dL (6.4-8.3)
[2017-12-29 17:35] LABS: TOTAL BILIRUBIN 0.4 mg/dL (0.0-1.0)
[2017-12-29 17:36] LABS: SERUM ETHYL ALCOHOL < 10 mg/dL
[2017-12-29 17:37] LABS: ALKALINE PHOSPHATASE 60 IU/L (3-129); CREATININE 1.5 mg/dL (0.6-1.3); GFR ESTIMATE (CALCULATED) > 59 mL/min/ (58.99-99999)
[2017-12-29 17:38] LABS: UREA NITROGEN (BUN) 6 mg/dL (9-23)
[2017-12-29 17:39] LABS: AST (GOT) 24 IU/L (2-34)
[2017-12-29 17:40] LABS: ALT (GPT) 16 IU/L (3-49)
[2017-12-29 18:17] LABS: HEMATOLOGY COMMENT 1 PLT EST 120; PLATELET COUNT 142 K/uL (156-360)
[2017-12-29 19:00] LABS: ACETAMINOPHEN (TYLENOL) < 10 mcg/mL (10-30); SALICYLATE < 5.0 MG/DL (15-30)
[2017-12-29 19:55] VITALS: BP 116/66
== END 2017-12-29 20:12 | disposition home or self-care (01) ==
LOC: EME 16:48
PROVIDERS: Emergency Medicine
DX: F43.22 Adjustment disorder with anxiety (principal); F84.0 Autistic disorder; F63.81 Intermittent explosive disorder; F79 Unspecified intellectual disabilities; F32.9 Major depressive disorder, single episode, unspecified; Z86.69 Personal history of other diseases of the nervous system and sense organs; Z88.8 Allergy status to other drugs, medicaments and biological substances
CPT/HCPCS: 80053; 81003; 85027; 90839; 99281; 99284; G0480